=== PATIENT | male | born 1960 | race Caucasian/White ===

== ENCOUNTER 2017-10-11 18:16 | Emergency (ER) | payer SELFPAY ==
[~2017-10-11 18:16] MED LIST: Lidocaine 1% 10 ML MDV ONE
--- NOTE | 2017-10-16 14:17 | EDM.PDOC ---
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 He had cut the end off the hook and the swelling engulfed the hook. Onset: Sudden Location: Reports: Upper Extremity, Left Quality: Reports: Ache Severity: Mild Improves with: Reports: None Worsens with: Reports: None - Related Data Allergies Allergy/AdvReac Type Severity Reaction Status Date / Time No Known Allergies Allergy Verified 10/11/17 21:11 Review of Systems - Review of Systems Review Of Systems: ROS reveals no pertinent complaints other than HPI. ED EXAM, GENERAL - Physical Exam Exam: See Below Exam Limited By: No Limitations General Appearance: Alert, WD/WN Respiratory/Chest: No Respiratory Distress Cardiovascular: Normal Peripheral Pulses Neurological: Alert, Oriented, CN II-XII Intact, Normal Reflexes, No Motor/ Sensory Deficits Skin Exam: Other (wound of the left hand with sweling) ED TRAUMA EXTREMITY PROCEDURES - Foreign Body Removal Consent Obtained: Patient Foreign Body Other Location Comment:: Left hand between the thumb and index finger proximally. Area prepped sterilely and 11 blade used to increase opening of puncture of hook. hemostat used to try and grasp cut end and push through. This method failed multiple times but did advance the tip of the hook to the surface. #11 blade used to puncture the skin at the distal end of the hook near the surface of the skin and hemostat used to clamp the distal point and pull out. No complications. Anesthesia Type: Local Complications:: No Course - Orders/Labs/Meds Meds: Medications Discontinued Medications Generic Name Dose Route Start Last Admin Trade Name Freq PRN Reason Stop Dose Admin Lidocaine HCl 10 ml 10/11/17 15:00 Xylocaine 1% .ROUTE 10/11/17 15:01 .STK-MED ONE Departure - Departure Time of Disposition: 20:00 Disposition: Home, Self-Care 01 Condition: Good Clinical Impression: Fish hook injury of hand - Discharge Information Instructions: Puncture Wound Referrals: PCP,None [Primary Care Provider] - - Problem List & Annotations (1) Fish hook injury of hand SNOMED Code(s): 074861983 Code(s): S69.90XA - UNSP INJURY OF UNSP WRIST, HAND AND FINGER(S), INIT ENCNTR Status: Acute Priority: High Qualifiers: Encounter type: initial encounter Laterality: left Qualified Code(s): S69.92XA - Unspecified injury of left wrist, hand and finger(s), initial encounter - Problem List Review Problem List Initiated/Reviewed/Updated: Yes - Assessment/Plan Plan: Counseled on wound care, monitoring for infection and f/u as directed and as needed. Antibiotics prescribed. Discussed side effects and f/u.
== END 2017-10-11 19:39 | disposition home or self-care (01) ==
LOC: LB.ED 18:16
DX: S60.552A Superficial foreign body of left hand, initial encounter (principal); W45.8XXA Other foreign body or object entering through skin, initial encounter
CPT/HCPCS: 99283; A9270-GY